=== PATIENT | male | born 1965 | race Caucasian/White ===

== ENCOUNTER 2017-01-03 23:30 | Emergency (ER) | payer SELFPAY ==
[~2017-01-03] VITALS: Ht 165.1 cm; Wt 80.0 kg
[~2017-01-03 23:30] MED LIST: ASPI81TA82 PO; LISI-515 PO; LISI30TA44 PO; NEXI20CA PO; ZYRT10TA12 PO
[2017-01-03 23:33] VITALS: BP 168/98; PULSE 67; RESP 16; TEMP 98; O2SAT 98
[2017-01-04] MEDS ORDERED: ASPI81CH37 CHEW (00:15)
--- NOTE | 2017-01-04 03:58 | RADRPT ---
EXAM DATE/TIME: 01/04/2017 03:48 This report includes an Addendum and supersedes previous reports for this exam. [facility] COMPARISON: CHEST SINGLE AP, August 17, 2016, 7:25. INDICATIONS : Patient had chest pain this evening and felt he had an elevated blood pressure. MEDICAL HISTORY : Hypertension. SURGICAL HISTORY : None. ENCOUNTER: Initial ACUITY: 1 day PAIN SCORE: 0/10 LOCATION: Bilateral chest FINDINGS: A single view of the chest demonstrates the lungs to be symmetrically aerated without evidence of mas s, infiltrate or effusion. The cardiomediastinal contours are unremarkable. Osseous structures are intact. CONCLUSION: 1. Endotracheal tube and nasogastric tube are in place. Kush Moya MD on January 04, 2017 at 3:56 Board Certified Radiologist. This report was verified electronically. ADDENDUM: I reviewed this examination and there is no endotracheal tube or nasogastric tube present. Nabor Yun MD on January 04, 2017 at 10:46 Board Certified Radiologist. This report was verified electronically.
[2017-01-04 04:05] LABS: AUTOMATED NEUTROPHIL # 4.1 TH/MM3 (1.8-7.7); BASOPHIL # 0.2 TH/MM3 (0-0.2); BASOPHIL % 2.4 % (0.0-2.0); EOSINOPHIL # 0.3 TH/MM3 (0-0.4); EOSINOPHIL % 3.7 % (0.0-4.0); HEMATOCRIT 43.4 % (39.0-51.0); HEMO FLAGS DIFF FINAL; LYMPH % 32.9 % (9.0-44.0); LYMPHOCYTE # 2.6 TH/MM3 (1.0-4.8); MEAN CELL VOLUME 90.6 FL (80.0-100.0); MEAN CORPUSCULAR HEMOGLOBIN 31.1 PG (27.0-34.0); MEAN CORPUSCULAR HGB CONC 34.4 % (32.0-36.0); MONO % 7.6 % (0.0-8.0); NEUT % 53.4 % (16.0-70.0); PLATELET COUNT 258 TH/MM3 (150-450); RED BLOOD COUNT 4.79 MIL/MM3 (4.50-5.90); RED CELL DISTRIBUTION WIDTH 13.4 % (11.6-17.2); WHITE BLOOD COUNT 7.8 TH/MM3 (4.0-11.0)
[2017-01-04 04:34] LABS: ANION GAP 6 MEQ/L (5-15); BICARBONATE 28.6 MEQ/L (21.0-32.0); BLOOD UREA NITROGEN 24 MG/DL (7-18); CHLORIDE 105 MEQ/L (98-107); GLOMERULAR FILTRATION RATE 61 ML/MIN (>89); POTASSIUM 4.3 MEQ/L (3.5-5.1); SODIUM (NA) 140 MEQ/L (136-145)
[2017-01-04 04:38] LABS: CREATINE KINASE 187 U/L (39-308)
[2017-01-04 04:51] LABS: CKMB 1.9 NG/ML (0.5-3.6)
[2017-01-04] MEDS ORDERED: LISI10TA3 PO (10:21)
--- NOTE | 2017-01-04 11:02 | PD ---
HPI Chief Complaint: Chest Pain Time Seen by Provider: 10:24 Travel History International Travel<30 days: No Contact w/Intl Traveler<30days: No Traveled to known affect area: No History of Present Illness HPI This is a 51-year-old male who presents to the emergency department having an onset of sternal chest pain that started at 10:30 last night, intermittent, sharp, stabbing, with no associated shortness of breath, diaphoresis or nausea. He's had chest pain like this in the past. 3 months ago he says he was evaluated and had normal stress test in his pain was attributed to indigestion. He says yesterday he was moving boxes and lifting things and his whole chest feels sore. His children were concerned about him and they brought him into the emergency department. He does have a history of hypertension. [facility] Past Medical History Diminished Hearing: No GERD: Yes Hypertension: Yes Tetanus Vaccination: Never Vaccinated Influenza Vaccination: No Past Surgical History Abdominal Surgery: Yes (hernia ) Social History Alcohol Use: No Tobacco Use: No Substance Use: No Allergies-Medications (Allergen,Severity, Reaction): Coded Allergies: No Known Allergies (Unverified , 01/04/17) Reported Meds & Prescriptions Reported Meds & Active Scripts Active Lisinopril 20 Mg Tab 20 Mg PO DAILY Reported Lisinopril 10 Mg Tab 10 Mg PO DAILY Aspirin Low Dose (Aspirin) 81 Mg Chew 81 Mg CHEW DAILY Review of Systems Except as stated in HPI: all other systems reviewed are Neg Physical Exam Narrative GENERAL:Well appearing, no acute distress SKIN: Warm and dry. HEAD: Atraumatic. Normocephalic. EYES: Pupils equal and round. No injection or drainage. ENT: Moist mucous membranes NECK: Trachea midline. CARDIOVASCULAR: Regular rate and rhythm. No murmur appreciated. RESPIRATORY: Clear to auscultation. Breath sounds equal bilaterally. GASTROINTESTINAL: Abdomen soft, non-tender, nondistended. MUSCULOSKELETAL: No obvious deformities. NEUROLOGICAL: Awake and alert. No obvious cranial nerve deficits. Moving all extremities. PSYCHIATRIC: Appropriate mood and affect; insight and judgment normal. Data Data Last Documented VS Vital Signs Date Time Temp Pulse Resp B/P Pulse Ox O2 Delivery O2 Flow Rate FiO2 01/04/17 00:17 16 Room Air 01/03/17 23:33 98.0 67 168/98 98 Orders Electrocardiogram (01/04/17 ) Complete Blood Count With Diff (01/04/17 03:33) Basic Metabolic Panel (Bmp) (01/04/17 03:33) Ckmb (Isoenzyme) Profile (01/04/17 03:33) Troponin I (01/04/17 03:33) Chest, Single Ap (01/04/17 03:33) CKMB (01/04/17 03:52) CKMB% (01/04/17 03:52) Troponin I (01/04/17 10:33) Labs Laboratory Tests Test 01/04/17 01/04/17 03:52 11:02 White Blood Count 7.8 TH/MM3 Red Blood Count 4.79 MIL/MM3 Hemoglobin 14.9 GM/DL Hematocrit 43.4 % Mean Corpuscular Volume 90.6 FL Mean Corpuscular Hemoglobin 31.1 PG Mean Corpuscular Hemoglobin 34.4 % Concent Red Cell Distribution Width 13.4 % Platelet Count 258 TH/MM3 Mean Platelet Volume 7.6 FL Neutrophils (%) (Auto) 53.4 % Lymphocytes (%) (Auto) 32.9 % Monocytes (%) (Auto) 7.6 % Eosinophils (%) (Auto) 3.7 % Basophils (%) (Auto) 2.4 % Neutrophils # (Auto) 4.1 TH/MM3 Lymphocytes # (Auto) 2.6 TH/MM3 Monocytes # (Auto) 0.6 TH/MM3 Eosinophils # (Auto) 0.3 TH/MM3 Basophils # (Auto) 0.2 TH/MM3 CBC Comment DIFF FINAL Differential Comment Sodium Level 140 MEQ/L Potassium Level 4.3 MEQ/L Chloride Level 105 MEQ/L Carbon Dioxide Level 28.6 MEQ/L Anion Gap 6 MEQ/L Blood Urea Nitrogen 24 MG/DL Creatinine 1.25 MG/DL Estimat Glomerular Filtration 61 ML/MIN Rate Random Glucose 98 MG/DL Calcium Level 8.5 MG/DL Total Creatine Kinase 187 U/L Creatine Kinase MB 1.9 NG/ML Troponin I LESS THAN 0.02 LESS THAN 0.02 NG/ML NG/ML MDM Medical Decision Making Medical Screen Exam Complete: Yes Emergency Medical Condition: Yes Interpretation(s) Afebrile, no tachycardia, hypertension EKG: Normal sinus rhythm with no ST changes Differential Diagnosis Acute coronary syndrome, GERD, gastritis, costochondritis Narrative Course This is a 51-year-old male who presents to the emergency department with atypical chest pain. He was placed on a monitor and an IV was established. EKG was nonischemic. Initial troponin is normal. Chest x-rays reassuring. Patient had a normal exercise stress test in September 2016. I suspect the patient has costochondritis in the setting of lifting heavy boxes yesterday and that the etiology of his pain. A repeat troponin will be obtained this morning and if normal the patient can be discharged home. The patient says he feels like his blood pressure is been higher ever since he went down on his lisinopril. I agreed to write him for 20 mg of lisinopril and have him follow- up with his primary care physician. Diagnosis Primary Impression: Chest pain Qualified Code: R07.9 - Chest pain, unspecified type Patient Instructions: General Instructions Additional Instructions: If you develop severe chest pain, shortness of breath, sweating, lightheadedness , dizziness or difficulty breathing return to the emergency department immediately. Followup with your primary care physician in 2-3 days if your symptoms are not resolved. Med/Other Pt SpecificInfo: Prescription(s) given Scripts Lisinopril 20 Mg Tab20 Mg PO DAILY #30 TAB Ref 0 Prov:Clara Johnson MD 01/04/17 Disposition: 01 DISCHARGE HOME Condition: Stable Clara Johnson MD Jan 04, 2017 11:01
[2017-01-04] MEDS ORDERED: LISI-515 PO (11:04)
--- NOTE | 2017-01-04 22:52 | EKG ---
Date Performed: 01/04/2017 Time Performed: 00:25:31 PTAGE: 51 years EKG: Sinus rhythm NORMAL ECG PREVIOUS TRACING : 08/17/2016 10.33 DOCTOR: Haider Correa Interpretating Date/Time 01/04/2017 22:51:33
== END 2017-01-04 12:00 | disposition home or self-care (01) ==
LOC: NEPE 23:30
DX: R07.9 Chest pain, unspecified (principal); I10 Essential (primary) hypertension; K21.9 Gastro-esophageal reflux disease without esophagitis
CPT/HCPCS: 71010; 80048; 82550; 82552; 84484; 85025; 93005

== ENCOUNTER 2017-02-23 18:10 | Emergency (ER) | payer SELFPAY ==
[~2017-02-23] VITALS: Ht 170.2 cm; Wt 80.0 kg
[~2017-02-23 18:10] MED LIST changes: +ASPI81CH37 CHEW; -ASPI81TA82 PO; +LISI10TA3 PO; -LISI30TA44 PO; -NEXI20CA PO; -ZYRT10TA12 PO
[2017-02-23 18:12] VITALS: BP 159/100; PULSE 97; RESP 16; TEMP 97.8; O2SAT 97
[2017-02-23] MEDS ORDERED: SODIUM CHLOR 0.9% 1000 ML INJ 1,000 ML IV ONE (18:48)
[2017-02-23 18:50] VITALS: PULSE 84; O2SAT 97
--- NOTE | 2017-02-23 18:52 | PD ---
HPI Chief Complaint: Headache Time Seen by Provider: 18:49 Travel History International Travel<30 days: No Contact w/Intl Traveler<30days: No Traveled to known affect area: No History of Present Illness HPI 51-year-old male presents to the emergency department for evaluation of hypertension and headache. He states his headache has been ongoing this morning. He states that on the top of his head and currently rates 8/10. He does report a history of migraines and states this is not the most severe headache of his life. He states he took Goody powder 2 with no relief. When asked why he came to the emergency department, he states because his daughter and sister became worried because he also had associated blurry vision which is new for him. He states the blurry vision has resolved at this time. The patient denies any history of this with his headaches though. The patient does report a history of chronic back pain, migraine headaches, hypertension, reflux , restless leg syndrome. He is currently on lisinopril, Nexium, aspirin. He reports 2 hernia surgeries in the past, but no other surgeries. No alcohol, tobacco, drug use. He denies any weakness or syncope. No fevers. He is not currently have a primary care physician, but states he gets the [facility] clinic. [facility] Past Medical History Diminished Hearing: No GERD: Yes Hypertension: Yes Past Surgical History Abdominal Surgery: Yes (hernia ) Social History Alcohol Use: No Tobacco Use: No Substance Use: No Allergies-Medications (Allergen,Severity, Reaction): Coded Allergies: No Known Allergies (Unverified , 02/23/17) Reported Meds & Prescriptions Reported Meds & Active Scripts Active Lisinopril 20 Mg Tab 20 Mg PO DAILY Reported [unknown] Aspirin Low Dose (Aspirin) 81 Mg Chew 81 Mg CHEW DAILY Review of Systems Except as stated in HPI: all other systems reviewed are Neg Physical Exam Narrative GENERAL: Well-nourished, well-developed male patient, ambulatory. Afebrile. SKIN: Focused skin assessment warm/dry. HEAD: Normocephalic. Atraumatic. EYES: No scleral icterus. No injection or drainage. PERRLA. EOM intact. NECK: Supple, trachea midline. No JVD or lymphadenopathy. CARDIOVASCULAR: Regular rate and rhythm without murmurs, gallops, or rubs. RESPIRATORY: Breath sounds equal bilaterally. No accessory muscle use. Lungs sounds are clear to auscultation. GASTROINTESTINAL: Abdomen soft, non-tender, nondistended. MUSCULOSKELETAL: No cyanosis, or edema. Bilateral upper and lower extremity strength 5/5. All extremities are neurovascularly intact. BACK: Nontender without obvious deformity. No CVA tenderness. NEUROLOGICAL: Awake and alert. Cranial nerves II through XII intact. Motor and sensory grossly within normal limits. Five out of 5 muscle strength in all muscle groups. Normal speech. Finger to nose is normal bilaterally. Heel-to- emmanuel is normal bilaterally. Data Data Last Documented VS Vital Signs Date Time Temp Pulse Resp B/P Pulse Ox O2 Delivery O2 Flow Rate FiO2 02/23/17 18:50 84 97 Room Air 02/23/17 18:12 97.8 16 159/[address] Brain W/O Iv Contrast(Rout) (02/23/17 18:48) Ecg Monitoring (02/23/17 18:48) Iv Access Insert/Monitor (02/23/17 18:48) Oximetry (02/23/17 18:48) Sodium Chloride 0.9% Flush (Ns Flush) (02/23/17 19:00) Prochlorperazine Inj (Compazine Inj) (02/23/17 19:00) Diphenhydramine Inj (Benadryl Inj) (02/23/17 19:00) Sodium Chlor 0.9% 1000 Ml Inj (Ns 1000 M (02/23/17 18:48) MDM Medical Decision Making Medical Screen Exam Complete: Yes Emergency Medical Condition: Yes Medical Record Reviewed: Yes Interpretation(s) Last Impressions Head CT 02/23/17 [id number] Signed Impressions: Service Date/Time: February 19:09 - CONCLUSION: Unremarkable study. Murphy Gonzalez MD Differential Diagnosis Migraine headache versus tension type headache versus intracranial abnormality Narrative Course 51-year-old male presents to the emergency department for evaluation of hypertension and headache. He states this is typical headache other than the fact that he had blurry vision earlier. He does state this has resolved. IV access was obtained. Patient is given Compazine 10 mg IV, Benadryl 25 mg IV, normal saline [address] of the brain is ordered and pending. CT of the brain is unremarkable. Upon reexamination, patient states his headache is almost gone. He'll also be given Toradol 30 mg IV. He is stable for discharge. He is to follow up with primary care physician. He is instructed to return for any acute worsening of symptoms. Patient verbalizes agreement and understanding. The patient was discharged in stable condition with instructions, including return instructions and follow up instructions. Diagnosis Primary Impression: Migraine headache Qualified Code: G43.009 - Migraine without aura and without status migrainosus , not intractable Referrals: Primary Care Physician call for appointment Patient Instructions: General Instructions, Migraine Headache (ED) Additional Instructions: Follow-up with your primary care physician. Return to the emergency department for any acute worsening of symptoms. Med/Other Pt SpecificInfo: No Change to Meds Disposition: 01 DISCHARGE HOME Condition: Stable Farida Godinez Feb 23, 2017 18:52
[2017-02-23] MEDS ORDERED: SODIUM CHLORIDE 0.9% FLUSH 10 ML FLUSH IVF PRN (19:00)
[2017-02-23] MEDS ORDERED: PROCHLORPERAZINE INJ 10 MG/2 ML VIAL IVP ONE (19:00)
[2017-02-23] MEDS ORDERED: diphenhydrAMINE HCL 50 MG/ML VIAL IVP ONE (19:00)
--- NOTE | 2017-02-23 19:49 | RADRPT ---
EXAM DATE/TIME: 02/23/2017 19:09 [facility] COMPARISON: CT BRAIN W/O CONTRAST, June 11, 2016, 18:28. INDICATIONS : Cephalgia and blurred vision. RADIATION DOSE: 41.78 CTDIvol (mGy) MEDICAL HISTORY : Hypertension. SURGICAL HISTORY : None. ENCOUNTER: Initial ACUITY: 1 day PAIN SCALE: 5/10 LOCATION: cranial TECHNIQUE: Multiple contiguous axial images were obtained of the head. Using automated exposure control and adjustment of the mA and/or kV according to patient size, radiation dose was kept as low as reasonably achievable to obtain optimal diagnostic quality images. FINDINGS: There is no evidence for intracranial hemorrhage, mass effect, mass lesions, edema, or extra-axial fl uid collections. The visualized bony structures appear intact. The ventricles are normal size for t he patient's age. There are no signs of acute infarction for technique. CONCLUSION: Unremarkable study. Murphy Gonzalez MD on February 23, 2017 at 19:46 Board Certified Radiologist. This report was verified electronically.
[2017-02-23] MEDS ORDERED: KETOROLAC TROMETHAMINE 30 MG/ML (IVP) VIAL IV PUSH ONE (20:30)
== END 2017-02-23 20:41 | disposition home or self-care (01) ==
LOC: NEPD 18:10
DX: G43.009 Migraine without aura, not intractable, without status migrainosus (principal)
CPT/HCPCS: 70450; 96374; 96375; 99284; J0780; J1200; J1885; J7030

== ENCOUNTER 2017-03-20 19:17 | Emergency (ER) | payer SELFPAY ==
[~2017-03-20] VITALS: Ht 172.7 cm; Wt 80.0 kg
[~2017-03-20 19:17] MED LIST changes: -LISI10TA3 PO
[2017-03-20 19:18] VITALS: BP 157/100; PULSE 78; RESP 16; TEMP 98.9; O2SAT 97
--- NOTE | 2017-03-20 20:10 | PD ---
Physical Exam Time Seen by Provider: 10:08 Narrative 51 y/o male presents for evaluation of headache, htn. Hx of migraines, this feels similar. Htn is chronic, frequent migraines, this one started 2-3 days ago. vss Seen at triage desk. Awaiting bed placement. Data Data Last Documented VS Vital Signs Date Time Temp Pulse Resp B/P Pulse Ox O2 Delivery O2 Flow Rate FiO2 03/20/17 19:18 98.9 78 16 157/100 97 Room Air [facility] Medical Record Reviewed: Yes Supervised Visit with KWAME: Tomy Moise March 20, 2017 20:10
== END 2017-03-20 22:51 | disposition left against medical advice (07) ==
LOC: NED 19:17
DX: R51 Headache (principal); Z53.21 Procedure and treatment not carried out due to patient leaving prior to being seen by health care provider; I10 Essential (primary) hypertension
CPT/HCPCS: 99281

== ENCOUNTER 2017-06-29 00:34 | Emergency (ER) | payer SELFPAY ==
[~2017-06-29] VITALS: Ht 170.2 cm; Wt 79.5 kg
[2017-06-29 00:35] VITALS: BP 141/98; PULSE 73; RESP 16; TEMP 98.9; O2SAT 97
[2017-06-29] MEDS ORDERED: BENZ100 PO (01:12)
[2017-06-29] MEDS ORDERED: DOXY100C PO (01:12)
[2017-06-29] MEDS ORDERED: BENZONATATE 100 MG CAP PO ONE (01:15)
[2017-06-29] MEDS ORDERED: DOXYCYCLINE HYCLATE 100 MG CAP PO ONE (01:15)
--- NOTE | 2017-06-29 01:16 | PD ---
HPI Chief Complaint: Cold / Flu Symptoms Time Seen by Provider: 01:12 Travel History International Travel<30 days: No Contact w/Intl Traveler<30days: No Traveled to known affect area: No History of Present Illness HPI 52-year-old white male presents to emergency department with complains of cough and congestion this week. He states that he's had some slight congestion, cough with white sputum. He states that he coughs so hard sometimes it causes him to vomit. He denies any fever or chills. No ear pain or sore throat. No shortness of breath or wheezing. No abdominal pain or diarrhea. No dysuria or frequency. Symptoms are moderate. No exacerbating activity. No palliative activity. PFSH Past Medical History Narrative Medical Migraines, left shoulder bursitis, Hypertension. Denies asthma or COPD Diminished Hearing: No GERD: Yes Hypertension: Yes Medical other: Yes (BURSITIS IN LEFT SHOULDER) Migraines: Yes Tetanus Vaccination: < 5 Years Past Surgical History Narrative Surgical Herniorrhaphy Abdominal Surgery: Yes (hernia ) Social History Alcohol Use: No Tobacco Use: No Substance Use: No Allergies-Medications (Allergen,Severity, Reaction): Coded Allergies: No Known Allergies (Unverified , 06/29/17) Reported Meds & Prescriptions Reported Meds & Active Scripts Active Lisinopril 20 Mg Tab 20 Mg PO DAILY Reported Aspirin Low Dose (Aspirin) 81 Mg Chew 81 Mg CHEW DAILY Review of Systems Except as stated in HPI: all other systems reviewed are Neg Physical Exam Narrative GENERAL: Well-developed, well-nourished in no acute distress. Nontoxic appearing. HEAD: Normocephalic, atraumatic. EYES: Pupils equal round and reactive. Extraocular motions intact. No scleral icterus. No injection or drainage. ENT: TMs clear without erythema. The external auditory canals clear. Nose: clear . Posterior pharynx is pink and moist. No tonsillar edema or exudate. Uvula midline. Airway patent. NECK: Trachea midline.Supple, nontender, moves head freely. No central bony tenderness or spasm. CARDIOVASCULAR: Regular rate and rhythm without murmurs, gallops, or rubs. RESPIRATORY: Clear to auscultation. Breath sounds equal bilaterally. No wheezes , rales, or rhonchi. GASTROINTESTINAL: Abdomen soft, non-tender, nondistended. No hepato-splenomegaly , or palpable masses. No guarding. EXTREMITIES: No clubbing, cyanosis, or edema. No joint tenderness, effusion, or edema noted. BACK: Nontender without deformity or crepitance. No flank tenderness. Data Data Last Documented VS Vital Signs Date Time Temp Pulse Resp B/P Pulse Ox O2 Delivery O2 Flow Rate FiO2 06/29/17 00:35 98.9 73 16 141/98 97 Room Air Orders Doxycycline (Vibramycin) (06/29/17 01:15) Benzonatate (Tessalon) (06/29/17 01:15) [facility] Medical Decision Making Medical Screen Exam Complete: Yes Emergency Medical Condition: Yes Medical Record Reviewed: Yes Differential Diagnosis Differential diagnoses: Pneumonia, bronchitis, COPD, cough associated with YOAV inhibitor Narrative Course The patient's exam is unremarkable. He'll be treated for possible bronchitis. I do not believe that this is related to his YOAV inhibitor. Patient is given doxycycline 100 mg and Tessalon Perles 200 mg by mouth Diagnosis Primary Impression: Bronchitis Patient Instructions: General Instructions Departure Forms: Tests/Procedures, Work Release Special Instructions: No work 1-2 days. Additional Instructions: Rest. Increase fluids. Tylenol and Advil. Robitussin-DM. Doxycycline and Tessalon Perles. Followup with your Dr. in one week. Return to the ER for any problems. Med/Other Pt SpecificInfo: Prescription(s) given Scripts Benzonatate (Tessalon Perles)100 Mg [id number] Mg PO TID PRN (COUGH) #30 CAP Prov:Roxy Kline MD 06/29/17 Doxycycline Hyclate 100 Mg [id number] Mg PO BID #14 CAP Prov:Roxy Kline MD 06/29/17 Disposition: 01 DISCHARGE HOME Condition: Stable Reid Uriostegui Jun 29, 2017 01:15
== END 2017-06-29 02:19 | disposition home or self-care (01) ==
LOC: NEPK 00:34
DX: J40 Bronchitis, not specified as acute or chronic (principal)
CPT/HCPCS: 99284

== ENCOUNTER 2017-07-07 09:59 | Emergency (ER) | payer SELFPAY ==
[~2017-07-07] VITALS: Ht 171.4 cm; Wt 79.5 kg
[~2017-07-07 09:59] MED LIST changes: +BENZ100 PO; +DOXY100C PO
[2017-07-07 10:00] VITALS: BP 141/95; PULSE 108; RESP 17; TEMP 98.1; O2SAT 97
[2017-07-07] MEDS ORDERED: RESP: ALBUTEROL 2.5 MG/3 ML NEB (SCH) NEB ONE (10:30)
--- NOTE | 2017-07-07 10:45 | RADRPT ---
EXAM DATE/TIME: 07/07/2017 10:38 [facility] COMPARISON: No previous studies available for comparison. INDICATIONS : Shortness of breath and chest pain. MEDICAL HISTORY : None. SURGICAL HISTORY : None. ENCOUNTER: Initial ACUITY: 4 - 6 days PAIN SCORE: 6/10 LOCATION: Left upper chest FINDINGS: PA and lateral views of the chest demonstrate the lungs to be symmetrically aerated without evidence of mass, infiltrate or effusion. The cardiomediastinal contours are unremarkable. Osseous structure s are intact. CONCLUSION: No acute disease. Nabor Yun MD on July 07, 2017 at 10:42 Board Certified Radiologist. This report was verified electronically.
[2017-07-07] MEDS ORDERED: cefTRIAXone INJ 1,000 MG in SODIUM CHLORIDE 0.9% INJ 100 ML IV STA (10:54)
[2017-07-07] MEDS ORDERED: AZITHROMYCIN INJ 500 MG in SODIUM CHLOR 0.9% 250 ML INJ 250 ML IV STA (10:54)
[2017-07-07 11:08] LABS: AUTOMATED NEUTROPHIL # 8.5 TH/MM3 (1.8-7.7); BASOPHIL # 0.1 TH/MM3 (0-0.2); BASOPHIL % 0.9 % (0.0-2.0); EOSINOPHIL # 0.3 TH/MM3 (0-0.4); EOSINOPHIL % 2.3 % (0.0-4.0); HEMATOCRIT 43.3 % (39.0-51.0); HEMO FLAGS DIFF FINAL; LYMPH % 15.2 % (9.0-44.0); LYMPHOCYTE # 1.8 TH/MM3 (1.0-4.8); MEAN CELL VOLUME 92.4 FL (80.0-100.0); MEAN CORPUSCULAR HEMOGLOBIN 31.6 PG (27.0-34.0); MEAN CORPUSCULAR HGB CONC 34.2 % (32.0-36.0); MONO % 7.4 % (0.0-8.0); NEUT % 74.2 % (16.0-70.0); PLATELET COUNT 252 TH/MM3 (150-450); RED BLOOD COUNT 4.69 MIL/MM3 (4.50-5.90); RED CELL DISTRIBUTION WIDTH 13.8 % (11.6-17.2); WHITE BLOOD COUNT 11.5 TH/MM3 (4.0-11.0)
[2017-07-07 11:24] LABS: ANION GAP 7 MEQ/L (5-15); AST (GOT) 22 U/L (15-37); BICARBONATE 26.6 MEQ/L (21.0-32.0); BLOOD UREA NITROGEN 18 MG/DL (7-18); CHLORIDE 104 MEQ/L (98-107); GLOMERULAR FILTRATION RATE 65 ML/MIN (>89); POTASSIUM 4.3 MEQ/L (3.5-5.1); SODIUM (NA) 138 MEQ/L (136-145)
[2017-07-07 11:30] LABS: ALKALINE PHOSPHATASE 94 U/L (45-117); ALT (GPT) 28 U/L (12-78); TOTAL BILIRUBIN ADULT 0.4 MG/DL (0.2-1.0)
[2017-07-07] MEDS ORDERED: ZITHTAB PO (11:39)
[2017-07-07] MEDS ORDERED: ALBU0.08 NEB (11:39)
--- NOTE | 2017-07-07 11:39 | PD ---
HPI Chief Complaint: Respiratory Symptoms Time Seen by Provider: 10:13 Travel History International Travel<30 days: No Contact w/Intl Traveler<30days: No Traveled to known affect area: No History of Present Illness HPI Patient is a 52 year old male who comes in complaining of cough and SOB. He was here about 1 week ago and was given prescriptions for Doxycycline and Tessalon Perles. He was unable to fill these prescriptions due to financial reasons. He has been taking over the counter medications without relief of his symptoms. He denies fever or chills. He has not had any chest pain. He denies smoking. PFSH Past Medical History Cardiovascular Problems: Yes Diminished Hearing: No GERD: Yes Hypertension: Yes Migraines: Yes Tetanus Vaccination: Unknown Influenza Vaccination: No ?: Not Past Surgical History Abdominal Surgery: Yes (hernia ) Social History Alcohol Use: No (QUIT 30 YEARS AGO) Tobacco Use: No Substance Use: No Allergies-Medications (Allergen,Severity, Reaction): Coded Allergies: No Known Allergies (Unverified , 07/07/17) Reported Meds & Prescriptions Reported Meds & Active Scripts Active Albuterol Neb (Albuterol Sulfate) 2.5 Mg/3 Ml Neb 2.5 Mg NEB Q4HR NEB PRN Zithromax Z-Delta (Azithromycin) 250 Mg Dspk 250 Mg PO DIRECTED 500 MG (2 tabs) day 1, then 1 tab days 2-5. Tessalon Perles (Benzonatate) 100 Mg Cap 200 Mg PO TID PRN Doxycycline Hyclate 100 Mg Cap 100 Mg PO BID Lisinopril 20 Mg Tab 20 Mg PO DAILY Reported Aspirin Low Dose (Aspirin) 81 Mg Chew 81 Mg CHEW DAILY Review of Systems Except as stated in HPI: all other systems reviewed are Neg General / Constitutional: No: Fever, Chills HENT: No: Headaches, Lightheadedness Cardiovascular: No: Chest Pain or Discomfort Respiratory: Positive: Cough, Shortness of Breath Gastrointestinal: No: Nausea, Vomiting Musculoskeletal: No: Myalgias, Edema, Pain Skin: No Rash, No Change in Pigmentation Neurologic: No: Weakness, Dizziness Physical Exam Narrative GENERAL: Awake and alert, in no acute distress. SKIN: Focused skin assessment warm/dry. HEAD: Atraumatic. Normocephalic. EYES: Pupils equal and round. No scleral icterus. ENT: Mucous membranes pink and moist. NECK: Trachea midline. No JVD. CARDIOVASCULAR: Regular rate and rhythm. No murmur appreciated. RESPIRATORY: No accessory muscle use. Coarse breath sounds on the right. Breath sounds equal bilaterally. MUSCULOSKELETAL: No obvious deformities. No clubbing. No cyanosis. No edema. NEUROLOGICAL: Awake and alert. No obvious cranial nerve deficits. Motor grossly within normal limits. Normal speech. PSYCHIATRIC: Appropriate mood and affect; insight and judgment normal. Data Data Last Documented VS Vital Signs Date Time Temp Pulse Resp B/P Pulse Ox O2 Delivery O2 Flow Rate FiO2 07/07/17 10:36 20 97 Room Air 07/07/17 10:00 98.1 108 141/95 Orders Iv Access Insert/Monitor (07/07/17 10:19) Complete Blood Count With Diff (07/07/17 10:19) Comprehensive Metabolic Panel (07/07/17 10:19) Chest, Pa & Lat (07/07/17 ) Albuterol Neb (Albuterol Neb) (07/07/17 10:30) Ceftriaxone Inj (Rocephin Inj) (07/07/17 10:54) Azithromycin Inj (Zithromax Inj) (07/07/17 10:54) Labs Laboratory Tests Test 07/07/17 10:30 White Blood Count 11.5 TH/MM3 Red Blood Count 4.69 MIL/MM3 Hemoglobin 14.8 GM/DL Hematocrit 43.3 % Mean Corpuscular Volume 92.4 FL Mean Corpuscular Hemoglobin 31.6 PG Mean Corpuscular Hemoglobin 34.2 % Concent Red Cell Distribution Width 13.8 % Platelet Count 252 TH/MM3 Mean Platelet Volume 7.6 FL Neutrophils (%) (Auto) 74.2 % Lymphocytes (%) (Auto) 15.2 % Monocytes (%) (Auto) 7.4 % Eosinophils (%) (Auto) 2.3 % Basophils (%) (Auto) 0.9 % Neutrophils # (Auto) 8.5 TH/MM3 Lymphocytes # (Auto) 1.8 TH/MM3 Monocytes # (Auto) 0.9 TH/MM3 Eosinophils # (Auto) 0.3 TH/MM3 Basophils # (Auto) 0.1 TH/MM3 CBC Comment DIFF FINAL Differential Comment Sodium Level 138 MEQ/L Potassium Level 4.3 MEQ/L Chloride Level 104 MEQ/L Carbon Dioxide Level 26.6 MEQ/L Anion Gap 7 MEQ/L Blood Urea Nitrogen 18 MG/DL Creatinine 1.18 MG/DL Estimat Glomerular Filtration 65 ML/MIN Rate Random Glucose 101 MG/DL Calcium Level 8.6 MG/DL Total Bilirubin 0.4 MG/DL Aspartate Amino Transf 22 U/L (AST/SGOT) Alanine Aminotransferase 28 U/L (ALT/SGPT) Alkaline Phosphatase 94 U/L Total Protein 6.9 GM/DL Albumin 3.7 GM/DL [facility] Medical Decision Making Medical Screen Exam Complete: Yes Emergency Medical Condition: Yes Medical Record Reviewed: Yes Differential Diagnosis Pneumonia vs bronchitis vs URI Narrative Course Patient is a 52 year old male who comes in complaining of cough and SOB. Exam shows coarse breath sounds on the right. IV established, labs sent. Labs show no acute abnormalities. CXR performed shows no acute abnormalities. Patient given an albuterol treatment with improvement of his symptoms. Given a dose of Azithromycin here in the ED. Discharged with prescriptions for Azithromycin (10 dollars at [facility]) and albuterol for the nebulizer he has at home. Advised to follow up in the [place] clinic and return to the ED as needed for any worsening symptoms. Diagnosis Primary Impression: Bronchitis Referrals: [facility] call for appointment Patient Instructions: Acute Bronchitis (ED), General Instructions Additional Instructions: Take all of your antibiotics. Use albuterol as needed for cough and SOB. Follow up in the [place] clinic. Return to the ED as needed for any worsening symptoms. Scripts Albuterol Neb 2.5 Mg/3 Ml Neb2.5 Mg NEB Q4HR NEB PRN (SHORTNESS OF BREATH) #60 NEBULE Ref 0 Prov:Roxy Kline MD 07/07/17 Azithromycin (Zithromax Z-Delta)250 Mg [id number] Mg PO DIRECTED #1 DSPK Ref 0 500 MG (2 tabs) day 1, then 1 tab days 2-5. Prov:Roxy Kline MD 07/07/17 Disposition: 01 DISCHARGE HOME Condition: Stable Roxy Kline MD Jul 07, 2017 11:39
== END 2017-07-07 13:07 | disposition home or self-care (01) ==
LOC: NEPD 09:59
DX: J20.9 Acute bronchitis, unspecified (principal); I10 Essential (primary) hypertension; K21.9 Gastro-esophageal reflux disease without esophagitis
CPT/HCPCS: 71020; 80053; 85025; 94664; 96365; 99284; J0456; J7050; J7613

== ENCOUNTER 2017-08-31 08:28 | Emergency (ER) | payer SELFPAY ==
[~2017-08-31] VITALS: Ht 170.2 cm; Wt 85.0 kg
[~2017-08-31 08:28] MED LIST changes: +ALBU0.08 NEB; +ZITHTAB PO
[2017-08-31 08:30] VITALS: BP 135/88; PULSE 118; RESP 19; TEMP 98.3; O2SAT 94
[2017-08-31] MEDS ORDERED: NEXI40CA PO (08:50)
[2017-08-31] MEDS ORDERED: VITA100021 SL (08:50)
[2017-08-31] MEDS ORDERED: SODIUM CHLOR 0.9% 1000 ML INJ 1,000 ML IV ONE ×2 (08:58→11:45)
[2017-08-31] MEDS ORDERED: SODIUM CHLORIDE 0.9% FLUSH 10 ML FLUSH IVF PRN (09:00)
[2017-08-31] MEDS ORDERED: ONDANSETRON HCL 4 MG/2 ML VIAL IV PUSH ONE (09:00)
[2017-08-31 09:10] VITALS: BP 116/71; PULSE 97; RESP 16; O2SAT 94
[2017-08-31 09:33] LABS: AUTOMATED NEUTROPHIL # 5.6 TH/MM3 (1.8-7.7); BASOPHIL % 0.5 % (0.0-2.0); EOSINOPHIL % 0.8 % (0.0-4.0); HEMATOCRIT 43.9 % (39.0-51.0); HEMO FLAGS DIFF FINAL; LYMPHOCYTE # 0.4 TH/MM3 (1.0-4.8); MEAN CELL VOLUME 92.9 FL (80.0-100.0); MEAN CORPUSCULAR HEMOGLOBIN 31.8 PG (27.0-34.0); MEAN CORPUSCULAR HGB CONC 34.2 % (32.0-36.0); MONO % 4.4 % (0.0-8.0); NEUT % 87.3 % (16.0-70.0); PLATELET COUNT 205 TH/MM3 (150-450); RED BLOOD COUNT 4.73 MIL/MM3 (4.50-5.90); RED CELL DISTRIBUTION WIDTH 13.4 % (11.6-17.2); WHITE BLOOD COUNT 6.4 TH/MM3 (4.0-11.0)
--- NOTE | 2017-08-31 09:34 | PD ---
HPI Chief Complaint: GI Complaint Time Seen by Provider: 08:58 Travel History International Travel<30 days: No Contact w/Intl Traveler<30days: No Traveled to known affect area: No History of Present Illness HPI This is a 52-year-old male with history of hypertension, presents today with complaints of 2 day history of nausea vomiting diarrhea. Patient states started yesterday with watery diarrhea. He reports 6 episodes of diarrhea. He also reports 5-6 episodes of nausea. He denies any blood in his vomit or stool. There are no ill contacts. Distal previous history of abdominal pain or abnormalities. He reports mild headache. He also reports no pain in his abdomen. He reports normal urine output. PFSH Past Medical History Cardiovascular Problems: Yes Diminished Hearing: No GERD: Yes Hypertension: Yes Migraines: Yes Tetanus Vaccination: > 5 Years Influenza Vaccination: No Past Surgical History Abdominal Surgery: Yes (hernia ) Social History Alcohol Use: No Tobacco Use: No Substance Use: No Allergies-Medications (Allergen,Severity, Reaction): Coded Allergies: No Known Allergies (Unverified , 08/31/17) Reported Meds & Prescriptions Reported Meds & Active Scripts Active Lisinopril 20 Mg Tab 20 Mg PO DAILY Reported Vitamin B-12 (Cyanocobalamin) 1,000 Mcg Subl 1,000 Mcg SL DAILY Nexium (Esomeprazole DR) 40 Mg Capdr 40 Mg PO DAILY Aspirin Low Dose (Aspirin) 81 Mg Chew 81 Mg CHEW DAILY Review of Systems Except as stated in HPI: all other systems reviewed are Neg General / Constitutional: No: Fever, Chills HENT: Positive: Headaches, No: Neck Stiffness, Neck Pain Cardiovascular: No: Chest Pain or Discomfort, Palpitations Gastrointestinal: Positive: Nausea, Vomiting, Diarrhea, Abdominal Pain Genitourinary: No: Dysuria, Decreased Urinary Output Musculoskeletal: No: Weakness, Pain Neurologic: Positive: Headache (mild), No: Weakness, Dizziness Physical Exam Narrative GENERAL: Well-nourished, well-developed patient, in no acute rest her distress. SKIN: Focused skin assessment warm/dry. HEAD: Normocephalic/atraumatic. EYES: No scleral icterus. No injection or drainage. NECK: Supple, trachea midline. No JVD or lymphadenopathy. CARDIOVASCULAR: Regular rate and rhythm without murmurs, gallops, or rubs. RESPIRATORY: Breath sounds equal bilaterally. No accessory muscle use. GASTROINTESTINAL: Abdomen soft, non-tender, nondistended. No rebound or guarding. MUSCULOSKELETAL: No cyanosis, or edema. NEUROLOGICAL: Awake and alert. Cranial nerves II through XII intact. Motor grossly within normal limits. Five out of 5 muscle strength in all muscle groups. Normal speech. Data Data Last Documented VS Vital Signs Date Time Temp Pulse Resp B/P (MAP) Pulse Ox O2 Delivery O2 Flow Rate FiO2 08/31/17 12:45 82 16 114/68 (83) 95 Room Air 08/31/17 08:30 98.3 Orders Orders Complete Blood Count With Diff (08/31/17 08:58) Comprehensive Metabolic Panel (08/31/17 08:58) Urinalysis - C+S If Indicated (08/31/17 08:58) Lipase (08/31/17 08:58) Iv Access Insert/Monitor (08/31/17 08:58) Ecg Monitoring (08/31/17 08:58) Oximetry (08/31/17 08:58) Ondansetron Inj (Zofran Inj) (08/31/17 09:00) Sodium Chlor 0.9% 1000 Ml Inj (Ns 1000 M (08/31/17 08:58) Sodium Chloride 0.9% Flush (Ns Flush) (08/31/17 09:00) Ibuprofen (Motrin) (08/31/17 11:45) Sodium Chlor 0.9% 1000 Ml Inj (Ns 1000 M (08/31/17 11:45) Labs Laboratory Tests Test 08/31/17 09:00 White Blood Count 6.4 TH/MM3 Red Blood Count 4.73 MIL/MM3 Hemoglobin 15.0 GM/DL Hematocrit 43.9 % Mean Corpuscular Volume 92.9 FL Mean Corpuscular Hemoglobin 31.8 PG Mean Corpuscular Hemoglobin Concent 34.2 % Red Cell Distribution Width 13.4 % Platelet Count 205 TH/MM3 Mean Platelet Volume 7.7 FL Neutrophils (%) (Auto) 87.3 % Lymphocytes (%) (Auto) 7.0 % Monocytes (%) (Auto) 4.4 % Eosinophils (%) (Auto) 0.8 % Basophils (%) (Auto) 0.5 % Neutrophils # (Auto) 5.6 TH/MM3 Lymphocytes # (Auto) 0.4 TH/MM3 Monocytes # (Auto) 0.3 TH/MM3 Eosinophils # (Auto) 0.0 TH/MM3 Basophils # (Auto) 0.0 TH/MM3 CBC Comment DIFF FINAL Differential Comment Urine Color YELLOW Urine Turbidity CLEAR Urine pH 6.0 Urine Specific [place] 1.025 Urine Protein TRACE mg/dL Urine Glucose (UA) NEG mg/dL Urine Ketones NEG mg/dL Urine Occult Blood NEG Urine Nitrite NEG Urine Bilirubin NEG Urine Urobilinogen LESS THAN 2.0 MG/DL Urine Leukocyte Esterase NEG Urine RBC 1 /hpf Urine WBC 1 /hpf Urine Squamous Epithelial Cells <1 /hpf Urine Mucus FEW /lpf Microscopic Urinalysis Comment CULT NOT INDICATED Blood Urea Nitrogen 16 MG/DL Creatinine 1.19 MG/DL Random Glucose 117 MG/DL Total Protein 7.0 GM/DL Albumin 3.9 GM/DL Calcium Level 8.7 MG/DL Alkaline Phosphatase 82 U/L Aspartate Amino Transf (AST/SGOT) 25 U/L Alanine Aminotransferase (ALT/SGPT) 36 U/L Total Bilirubin 0.4 MG/DL Sodium Level 135 MEQ/L Potassium Level 3.7 MEQ/L Chloride Level 103 MEQ/L Carbon Dioxide Level 24.3 MEQ/L Anion Gap 8 MEQ/L Estimat Glomerular Filtration Rate 64 ML/MIN Lipase 155 U/L [facility] Medical Decision Making Medical Screen Exam Complete: Yes Emergency Medical Condition: Yes Differential Diagnosis Gastroenteritis versus foodborne illness versus pancreatitis versus diverticulitis Narrative Course 52-year-old male presents with nausea vomiting diarrhea. The patient has no abdominal pain on my examination. The patient's labs are within normal limits. He's been given 2 L of IVD fluids and 600 mg of Motrin. He states this headache that she had earlier has completely resolved. He is wishing to be discharged. He's had no nausea vomiting or diarrhea since he is been here. I will give him a prescription for Zofran. He is instructed to increase his fluid intake. Diagnosis Primary Impression: Nausea vomiting and diarrhea Additional Instructions: Drink plenty of fluids. Return if feeling worse. Med/Other Pt SpecificInfo: Prescription(s) given Scripts Ondansetron (Zofran) 4 Mg Tab 4 MG PO Q8HR Y for NAUSEA OR VOMITING, #10 TAB 0 Refills Prov: Melvin Delgado MD 08/31/17 Disposition: 01 DISCHARGE HOME Condition: Stable Melvin Delgado MD Aug 31, 2017 09:34
[2017-08-31 09:46] LABS: BLOOD, URINE NEG (NEG); COMMENT (UR) CULT NOT INDICATED; CULTURE IF INDICATED CULT NOT INDICATED; GLUCOSE,URINE NEG (NEG); KETONE, URINE NEG (NEG); MUCUS URINE FEW /lpf (OCC); NITRITE,URINE NEG (NEG); SQUAMOUS EPITHELIAL CELL URINE <1 /hpf (0-5); URINE COLOR YELLOW (YELLW/STRAW)
[2017-08-31 09:49] LABS: ALT (GPT) 36 U/L (12-78); ANION GAP 8 MEQ/L (5-15); AST (GOT) 25 U/L (15-37); BICARBONATE 24.3 MEQ/L (21.0-32.0); BLOOD UREA NITROGEN 16 MG/DL (7-18); CHLORIDE 103 MEQ/L (98-107); GLOMERULAR FILTRATION RATE 64 ML/MIN (>89); POTASSIUM 3.7 MEQ/L (3.5-5.1); SODIUM (NA) 135 MEQ/L (136-145)
[2017-08-31 09:52] LABS: ALKALINE PHOSPHATASE 82 U/L (45-117); TOTAL BILIRUBIN ADULT 0.4 MG/DL (0.2-1.0)
[2017-08-31] MEDS ORDERED: IBUPROFEN 600 MG TAB PO ONE (11:45)
[2017-08-31 12:45] VITALS: BP 114/68; PULSE 82; RESP 16; O2SAT 95
[2017-08-31] MEDS ORDERED: ZOFR4TAB PO (12:52)
[2017-08-31 13:13] VITALS: RESP 16
== END 2017-08-31 13:23 | disposition home or self-care (01) ==
LOC: NEPE 08:28
DX: R11.2 Nausea with vomiting, unspecified (principal); R19.7 Diarrhea, unspecified; I10 Essential (primary) hypertension; K21.9 Gastro-esophageal reflux disease without esophagitis
CPT/HCPCS: 80053; 81001; 83690; 85025; 96361; 96374; 99284; J2405; J7030

== ENCOUNTER 2017-10-20 22:45 | Emergency (ER) | payer SELFPAY ==
[~2017-10-20] VITALS: Ht 170.2 cm; Wt 85.0 kg
[~2017-10-20 22:45] MED LIST changes: -ALBU0.08 NEB; -ASPI81CH37 CHEW; +ASPI81CH6 CHEW; -BENZ100 PO; -DOXY100C PO; +NEXI40CA PO; +VITA100021 SL; -ZITHTAB PO; +ZOFR4TAB PO
[2017-10-20 22:47] VITALS: BP 149/97; PULSE 66; RESP 16; TEMP 99; O2SAT 98
[2017-10-20 23:10] VITALS: BP 144/107; PULSE 77; RESP 18; O2SAT 96
[2017-10-20] MEDS ORDERED: LISINOPRIL 10 MG TAB PO ONE (23:45)
--- NOTE | 2017-10-21 | PD ---
HPI Chief Complaint: Dizziness Time Seen by Provider: 23:14 Travel History International Travel<30 days: No Contact w/Intl Traveler<30days: No Traveled to known affect area: No History of Present Illness HPI Patient is a 52-year-old male coming in having 2 days of dizziness he said it started yesterday at work when he was helping unload a truck however he says it was not exertional. He often gets this dizziness but it is not correlated with exertion. He comes into the ER tonight because she's having left shoulder pain as well which he thought could be related to his heart. He has no history of cardiac disease and recently had a stress test which she said was without findings. Family history of cardiac disease. Patient in the ER appears nondiaphoretic awake alert in no distress he reports the pain is localized to his left upper humerus area there is no radiation. The dizziness is not a vertiginous feeling it is a almost blurring of his vision and almost doubling of his vision he reports. He is not having the symptoms of the time that I examined him and been coming and going for 2 days in duration has not seen another doctor for this same complaint. He has no doctor at this time because his hours that he works does not qualify him for health insurance. PFSH Past Medical History Cardiovascular Problems: Yes Diminished Hearing: No GERD: Yes Hypertension: Yes Migraines: Yes Tetanus Vaccination: Unknown Influenza Vaccination: No Past Surgical History Abdominal Surgery: Yes (hernia ) Social History Alcohol Use: No Tobacco Use: No Substance Use: No Allergies-Medications (Allergen,Severity, Reaction): Coded Allergies: No Known Allergies (Unverified Adverse Reaction, Unknown, 10/20/17) Reported Meds & Prescriptions Reported Meds & Active Scripts Active Lisinopril 20 Mg Tab 20 Mg PO DAILY Lisinopril 10 Mg Tab 10 Mg PO DAILY Zofran (Ondansetron HCl) 4 Mg Tab 4 Mg PO Q8HR PRN Lisinopril 20 Mg Tab 20 Mg PO DAILY Reported Vitamin B-12 (Cyanocobalamin) 1,000 Mcg Subl 1,000 Mcg SL DAILY Nexium (Esomeprazole DR) 40 Mg Capdr 40 Mg PO DAILY Aspirin Low Dose (Aspirin) 81 Mg Chew 81 Mg CHEW DAILY Review of Systems Except as stated in HPI: all other systems reviewed are Neg Musculoskeletal: Positive: Myalgias (left humeral pain nonradiating) Neurologic: Positive: Dizziness Physical Exam Narrative GENERAL: Patient is awake alert no signs of ataxia and no signs of vertiginous SKIN: Warm and dry. HEAD: Atraumatic. Normocephalic. EYES: Pupils equal and round. No scleral icterus. No injection or drainage. No nystagmus ENT: No nasal bleeding or discharge. Mucous membranes pink and moist. NECK: Trachea midline. No JVD. CARDIOVASCULAR: Regular rate and rhythm. RESPIRATORY: No accessory muscle use. Clear to auscultation. Breath sounds equal bilaterally. GASTROINTESTINAL: Abdomen soft, non-tender, nondistended. Hepatic and splenic margins not palpable. MUSCULOSKELETAL: Extremities left arm reproducible humeral area shoulder pain without clubbing, cyanosis, or edema. No obvious deformities. NEUROLOGICAL: Awake and alert. No obvious cranial nerve deficits. Motor grossly within normal limits. Five out of 5 muscle strength in the arms and legs. Normal speech. PSYCHIATRIC: Appropriate mood and affect; insight and judgment normal. Data Data Last Documented VS Vital Signs Date Time Temp Pulse Resp B/P (MAP) Pulse Ox O2 Delivery O2 Flow Rate FiO2 10/21/17 01:27 10/21/17 01:20 57 18 60 18 58 18 10/21/17 00:55 97 Room Air 10/20/17 22:47 99.0 Orders Orders Troponin I (10/20/17 23:30) Complete Blood Count With Diff (10/20/17 23:30) Comprehensive Metabolic Panel (10/20/17 23:30) Lisinopril (Prinivil) (10/20/17 23:45) Orthostatic Vital Signs (10/21/17 00:58) Ed Discharge Order (10/21/17 01:19) Electrocardiogram (10/20/17 23:03) Labs Laboratory Tests Test 10/20/17 23:30 White Blood Count 7.7 TH/MM3 Red Blood Count 4.34 MIL/MM3 Hemoglobin 14.1 GM/DL Hematocrit 39.8 % Mean Corpuscular Volume 91.6 FL Mean Corpuscular Hemoglobin 32.4 PG Mean Corpuscular Hemoglobin Concent 35.4 % Red Cell Distribution Width 13.6 % Platelet Count 210 TH/MM3 Mean Platelet Volume 8.0 FL Neutrophils (%) (Auto) 57.4 % Lymphocytes (%) (Auto) 29.7 % Monocytes (%) (Auto) 7.8 % Eosinophils (%) (Auto) 3.9 % Basophils (%) (Auto) 1.2 % Neutrophils # (Auto) 4.4 TH/MM3 Lymphocytes # (Auto) 2.3 TH/MM3 Monocytes # (Auto) 0.6 TH/MM3 Eosinophils # (Auto) 0.3 TH/MM3 Basophils # (Auto) 0.1 TH/MM3 CBC Comment DIFF FINAL Differential Comment Blood Urea Nitrogen 15 MG/DL Creatinine 1.31 MG/DL Random Glucose 87 MG/DL Total Protein 6.7 GM/DL Albumin 4.0 GM/DL Calcium Level 8.6 MG/DL Alkaline Phosphatase 77 U/L Aspartate Amino Transf (AST/SGOT) 23 U/L Alanine Aminotransferase (ALT/SGPT) 23 U/L Total Bilirubin 0.3 MG/DL Sodium Level 137 MEQ/L Potassium Level 4.0 MEQ/L Chloride Level 102 MEQ/L Carbon Dioxide Level 32.3 MEQ/L Anion Gap 3 MEQ/L Estimat Glomerular Filtration Rate 57 ML/MIN Troponin I LESS THAN 0.02 NG/ML [facility] Medical Decision Making Medical Screen Exam Complete: Yes Emergency Medical Condition: Yes Interpretation(s) EKG is normal sinus rhythm at 60 bpm Differential Diagnosis Dizziness of dehydration versus vertigo of benign positional vertigo, Mnire's , anxiety left arm pain muscle spasm muscle strain versus referred pain of cardiac ischemia. Narrative Course EKG is normal sinus rhythm troponin is less than 0.02. Glucose is 87 patient lab pressure after 10 mg lisinopril which I added to his 20 mg of ER he took tonight brought his pressure to 129/70 he is pain-free he is ready for discharge I give him a prescription for lisinopril 20s to replace his exhausted prescription as well as added 10 mg pill to add on the days were his 20 does not control his blood pressure is to follow-up with outpatient clinic [facility] referral info given Diagnosis Primary Impression: Dizziness Additional Impression: Spasm of muscle Patient Instructions: Dizziness (ED), General Instructions, Hypertension (ED) Scripts Lisinopril (Lisinopril) 20 Mg Tab 20 MG PO DAILY, #30 TAB 0 Refills Prov: Shankar Sheffield MD 10/21/17 Lisinopril (Lisinopril) 10 Mg Tab 10 MG PO DAILY, #30 TAB 0 Refills Prov: Shankar Sheffield MD 10/21/17 Disposition: 01 DISCHARGE HOME Condition: Good Shankar Sheffield MD Oct 21, 2017 00:00
[2017-10-21 00:16] LABS: AUTOMATED NEUTROPHIL # 4.4 TH/MM3 (1.8-7.7); BASOPHIL # 0.1 TH/MM3 (0-0.2); BASOPHIL % 1.2 % (0.0-2.0); EOSINOPHIL # 0.3 TH/MM3 (0-0.4); EOSINOPHIL % 3.9 % (0.0-4.0); HEMATOCRIT 39.8 % (39.0-51.0); HEMO FLAGS DIFF FINAL; LYMPH % 29.7 % (9.0-44.0); LYMPHOCYTE # 2.3 TH/MM3 (1.0-4.8); MEAN CELL VOLUME 91.6 FL (80.0-100.0); MEAN CORPUSCULAR HEMOGLOBIN 32.4 PG (27.0-34.0); MEAN CORPUSCULAR HGB CONC 35.4 % (32.0-36.0); MONO % 7.8 % (0.0-8.0); NEUT % 57.4 % (16.0-70.0); PLATELET COUNT 210 TH/MM3 (150-450); RED BLOOD COUNT 4.34 MIL/MM3 (4.50-5.90); RED CELL DISTRIBUTION WIDTH 13.6 % (11.6-17.2); WHITE BLOOD COUNT 7.7 TH/MM3 (4.0-11.0)
[2017-10-21 00:49] LABS: ALT (GPT) 23 U/L (12-78); ANION GAP 3 MEQ/L (5-15); AST (GOT) 23 U/L (15-37); BICARBONATE 32.3 MEQ/L (21.0-32.0); BLOOD UREA NITROGEN 15 MG/DL (7-18); CHLORIDE 102 MEQ/L (98-107); GLOMERULAR FILTRATION RATE 57 ML/MIN (>89); SODIUM (NA) 137 MEQ/L (136-145)
[2017-10-21 00:52] LABS: ALKALINE PHOSPHATASE 77 U/L (45-117); TOTAL BILIRUBIN ADULT 0.3 MG/DL (0.2-1.0)
[2017-10-21 00:55] VITALS: BP 129/77; PULSE 77; RESP 18; O2SAT 97
[2017-10-21] MEDS ORDERED: LISI-515 PO (01:18)
[2017-10-21] MEDS ORDERED: LISI10TA3 PO (01:18)
[2017-10-21 01:20] VITALS: BP_SYST 119; BP_SYST 136; BP_DIAS 88; BP_DIAS 93; BP_DIAS 94; RESP 18
--- NOTE | 2017-10-22 23:11 | EKG ---
Date Performed: 10/20/2017 Time Performed: 23:03:14 PTAGE: 52 years EKG: Sinus rhythm NORMAL ECG NO PREVIOUS TRACING DOCTOR: Franki Olivier Interpretating Date/Time 10/22/2017 23:10:06
== END 2017-10-21 01:28 | disposition home or self-care (01) ==
LOC: NEPE 22:45
DX: R42 Dizziness and giddiness (principal); M62.838 Other muscle spasm; M25.512 Pain in left shoulder; K21.9 Gastro-esophageal reflux disease without esophagitis; I10 Essential (primary) hypertension; Z79.82 Long term (current) use of aspirin; Z79.899 Other long term (current) drug therapy
CPT/HCPCS: 80053; 84484; 85025; 93005; 99283

== ENCOUNTER 2017-11-20 06:23 | Emergency (ER) | payer SELFPAY ==
[~2017-11-20] VITALS: Ht 170.2 cm; Wt 80.0 kg
[~2017-11-20 06:23] MED LIST changes: +LISI10TA3 PO
[2017-11-20 06:25] VITALS: BP 165/109; PULSE 64; RESP 16; TEMP 98.1; O2SAT 98
[2017-11-20 06:36] VITALS: BP 159/109
[2017-11-20] MEDS ORDERED: LISI10TA3 PO (06:52)
[2017-11-20] MEDS ORDERED: LISI-515 PO (06:52)
--- NOTE | 2017-11-20 06:52 | PD ---
HPI Chief Complaint: Hypertension Time Seen by Provider: 06:48 Travel History International Travel<30 days: No Contact w/Intl Traveler<30days: No Traveled to known affect area: No History of Present Illness HPI 52-year-old male complains of elevated blood pressure. Patient has history hypertension. Patient has been taking lisinopril 30 mg daily for years. Patient states that he ran out of lisinopril 2 days ago. Patient denies any headache. Patient denies any chest pain or shortness of breath. Patient denies abdominal pain. Patient denies any focal weakness or numbness of extremity. PFSH Past Medical History Cardiovascular Problems: Yes Diminished Hearing: No GERD: Yes Hypertension: Yes Migraines: Yes Tetanus Vaccination: Unknown Past Surgical History Abdominal Surgery: Yes (hernia ) Social History Alcohol Use: No Tobacco Use: No Substance Use: No Allergies-Medications (Allergen,Severity, Reaction): Coded Allergies: No Known Allergies (Unverified Adverse Reaction, Unknown, 11/20/17) Reported Meds & Prescriptions Reported Meds & Active Scripts Active Lisinopril 10 Mg Tab 10 Mg PO DAILY Lisinopril 20 Mg Tab 20 Mg PO DAILY Reported Vitamin B-12 (Cyanocobalamin) 1,000 Mcg Subl 1,000 Mcg SL DAILY Nexium (Esomeprazole DR) 40 Mg Capdr 40 Mg PO DAILY Aspirin Low Dose (Aspirin) 81 Mg Chew 81 Mg CHEW DAILY Review of Systems General / Constitutional: No: Fever Eyes: No: Visual changes HENT: No: Headaches Cardiovascular: No: Chest Pain or Discomfort Respiratory: No: Shortness of Breath Gastrointestinal: No: Abdominal Pain Genitourinary: No: Dysuria Musculoskeletal: No: Pain Skin: No Rash Neurologic: No: Weakness Psychiatric: No: Depression Endocrine: No: Polydipsia Hematologic/Lymphatic: No: Easy Bruising Physical Exam Narrative GENERAL: Well-nourished, well-developed patient. SKIN: Focused skin assessment warm/dry. HEAD: Normocephalic. EYES: No scleral icterus. No injection or drainage. NECK: Supple, trachea midline. No JVD or lymphadenopathy. CARDIOVASCULAR: Regular rate and rhythm without murmurs, gallops, or rubs. RESPIRATORY: Breath sounds equal bilaterally. No accessory muscle use. GASTROINTESTINAL: Abdomen soft, non-tender, nondistended. MUSCULOSKELETAL: No cyanosis, or edema. BACK: Nontender without obvious deformity. No CVA tenderness. Data Data Last Documented VS Vital Signs Date Time Temp Pulse Resp B/P (MAP) Pulse Ox O2 Delivery O2 Flow Rate FiO2 11/20/17 06:36 159/109 (126) 11/20/17 06:25 98.1 64 16 98 Room Air MDM Medical Decision Making Medical Screen Exam Complete: Yes Emergency Medical Condition: Yes Differential Diagnosis Differential diagnosis including uncontrolled hypertension, hypertensive urgency , hypertensive crisis. Narrative Course 52-year-old male with elevated blood pressure. Patient has history of hypertension and ran out of his medication 2 days ago. Diagnosis Primary Impression: Uncontrolled hypertension Patient Instructions: General Instructions Additional Instructions: Take lisinopril as directed. Follow-up with personal physician. Return if worse. Med/Other Pt SpecificInfo: Prescription(s) given Scripts Lisinopril (Lisinopril) 10 Mg Tab 10 MG PO DAILY, #30 TAB 6 Refills Prov: Jayro Brown MD 11/20/17 Lisinopril (Lisinopril) 20 Mg Tab 20 MG PO DAILY, #30 TAB 6 Refills Prov: Jayro Brown MD 11/20/17 Disposition: 01 DISCHARGE HOME Condition: Stable Jayro Brown MD Nov 20, 2017 06:52
== END 2017-11-20 07:13 | disposition home or self-care (01) ==
LOC: NEPE 06:23
DX: I10 Essential (primary) hypertension (principal); K21.9 Gastro-esophageal reflux disease without esophagitis; G43.909 Migraine, unspecified, not intractable, without status migrainosus; Z86.79 Personal history of other diseases of the circulatory system; Z79.82 Long term (current) use of aspirin; Z79.899 Other long term (current) drug therapy
CPT/HCPCS: 99283

== ENCOUNTER 2018-03-10 19:26 | Observation (INO) | payer SELFPAY ==
[~2018-03-10] VITALS: Ht 170.2 cm; Wt 84.0 kg
[~2018-03-10 19:26] MED LIST changes: -ZOFR4TAB PO
[2018-03-10 20:17] VITALS: BP 137/93; PULSE 67; RESP 16; TEMP 99; O2SAT 97
--- NOTE | 2018-03-10 20:45 | PD ---
HPI Chief Complaint: Chest Pain Time Seen by Provider: 20:35 Travel History International Travel<30 days: No Contact w/Intl Traveler<30days: No Traveled to known affect area: No History of Present Illness HPI 52-year-old male complains of chest pain. Patient states the pain started yesterday. Patient states the pain is sharp pain started in the left chest with radiation to left shoulder. Patient states that the pain has been persistent since then. Patient states the pain is better today. Patient denies any coughing congestion fever chills. Patient denies any palpitation diaphoresis or nausea with the chest pain. Patient states that the chest pains not associate with exertion. Patient has history hypertension. Patient denies history of diabetes or hyperlipidemia. Patient is a non-smoker. Patient has strong family history of heart disease. On a scale from 1-10 the pain is a 2. Patient took aspirin 81 mg 3 today. Patient was admitted to chest pain since July 2016 and had a normal stress test. PFSH Past Medical History Cardiovascular Problems: Yes Diminished Hearing: No GERD: Yes Hypertension: Yes Migraines: Yes Tetanus Vaccination: Unknown Influenza Vaccination: No Past Surgical History Abdominal Surgery: Yes (hernia ) Social History Alcohol Use: No Tobacco Use: No Substance Use: No Allergies-Medications (Allergen,Severity, Reaction): Coded Allergies: No Known Allergies (Unverified Adverse Reaction, Unknown, 03/10/18) Reported Meds & Prescriptions Reported Meds & Active Scripts Active Lisinopril 20 Mg Tab 20 Mg PO DAILY Lisinopril 10 Mg Tab 10 Mg PO DAILY Reported Vitamin B-12 (Cyanocobalamin) 1,000 Mcg Subl 1,000 Mcg SL DAILY Nexium (Esomeprazole DR) 40 Mg Capdr 40 Mg PO DAILY Aspirin Low Dose (Aspirin) 81 Mg Chew 81 Mg CHEW DAILY Review of Systems General / Constitutional: No: Fever Eyes: No: Visual changes HENT: No: Headaches Cardiovascular: Positive: Chest Pain or Discomfort Respiratory: No: Shortness of Breath Gastrointestinal: No: Abdominal Pain Genitourinary: No: Dysuria Musculoskeletal: No: Pain Skin: No Rash Neurologic: No: Weakness Psychiatric: No: Depression Endocrine: No: Polydipsia Hematologic/Lymphatic: No: Easy Bruising Physical Exam Narrative GENERAL: Well-nourished, well-developed patient. SKIN: Focused skin assessment warm/dry. HEAD: Normocephalic. EYES: No scleral icterus. No injection or drainage. NECK: Supple, trachea midline. No JVD or lymphadenopathy. CARDIOVASCULAR: Regular rate and rhythm without murmurs, gallops, or rubs. RESPIRATORY: Breath sounds equal bilaterally. No accessory muscle use. GASTROINTESTINAL: Abdomen soft, non-tender, nondistended. MUSCULOSKELETAL: No cyanosis, or edema. BACK: Nontender without obvious deformity. No CVA tenderness. Neurologic exam normal. Data Data Last Documented VS Vital Signs Date Time Temp Pulse Resp B/P (MAP) Pulse Ox O2 Delivery O2 Flow Rate FiO2 03/10/18 21:04 98 Room Air 03/10/18 20:17 99.0 67 16 137/93 (108) Orders Orders Electrocardiogram (03/10/18 20:41) Complete Blood Count With Diff (03/10/18 20:41) Comprehensive Metabolic Panel (03/10/18 20:41) Creatine Kinase (Cpk) (03/10/18 20:41) Troponin I (03/10/18 20:41) Prothrombin Time / Inr (Pt) (03/10/18 20:41) Act Partial Throm Time (Ptt) (03/10/18 20:41) Chest, Single Ap (03/10/18 20:41) Iv Access Insert/Monitor (03/10/18 20:41) Ecg Monitoring (03/10/18 20:41) Oximetry (03/10/18 20:41) CKMB (03/10/18 20:45) CKMB% (03/10/18 20:45) Admit Order (Ed Use Only) (03/10/18 21:43) Labs Laboratory Tests Test 03/10/18 20:45 White Blood Count 8.4 TH/MM3 Red Blood Count 4.71 MIL/MM3 Hemoglobin 14.7 GM/DL Hematocrit 42.1 % Mean Corpuscular Volume 89.4 FL Mean Corpuscular Hemoglobin 31.1 PG Mean Corpuscular Hemoglobin Concent 34.9 % Red Cell Distribution Width 13.4 % Platelet Count 268 TH/MM3 Mean Platelet Volume 7.4 FL Neutrophils (%) (Auto) 54.9 % Lymphocytes (%) (Auto) 32.5 % Monocytes (%) (Auto) 7.2 % Eosinophils (%) (Auto) 3.5 % Basophils (%) (Auto) 1.9 % Neutrophils # (Auto) 4.6 TH/MM3 Lymphocytes # (Auto) 2.7 TH/MM3 Monocytes # (Auto) 0.6 TH/MM3 Eosinophils # (Auto) 0.3 TH/MM3 Basophils # (Auto) 0.2 TH/MM3 CBC Comment DIFF FINAL Differential Comment Prothrombin Time 10.1 SEC Prothromb Time International Ratio 1.0 RATIO Activated Partial Thromboplast Time 25.8 SEC Blood Urea Nitrogen 22 MG/DL Creatinine 1.33 MG/DL Random Glucose 86 MG/DL Total Protein 7.3 GM/DL Albumin 4.1 GM/DL Calcium Level 9.1 MG/DL Alkaline Phosphatase 85 U/L Aspartate Amino Transf (AST/SGOT) 25 U/L Alanine Aminotransferase (ALT/SGPT) 28 U/L Total Bilirubin 0.3 MG/DL Sodium Level 138 MEQ/L Potassium Level 3.8 MEQ/L Chloride Level 103 MEQ/L Carbon Dioxide Level 28.2 MEQ/L Anion Gap 7 MEQ/L Estimat Glomerular Filtration Rate 56 ML/MIN Total Creatine Kinase 356 U/L Creatine Kinase MB 4.3 NG/ML Creatine Kinase MB % 1.2 % Troponin I LESS THAN 0.02 NG/ML MDM Medical Decision Making Medical Screen Exam Complete: Yes Emergency Medical Condition: Yes Interpretation(s) EKG shows sinus rhythm nonspecific ST-T wave change. Last Impressions Chest X-Ray 03/10/182040 Signed Impressions: Service Date/Time: Saturday, March 10, 2018 21:03 - CONCLUSION: No acute disease. Reid Hardin MD 21:37 PM. CBC within normal limits. BUN 22. Creatinine 1.33. Cardiac enzymes are normal. Differential Diagnosis Differential diagnosis including musculoskeletal, angina, [place], PE, pneumothorax. Narrative Course 52-year-old male with left-sided chest pain. Patient will be admitted to the chest pain center. Diagnosis Primary Impression: Chest pain Qualified Codes: R07.9 - Chest pain, unspecified Admitting Information Admitting Physician Requests: Observation Jayro Brown MD Mar 10, 2018 20:45
[2018-03-10 21:02] LABS: AUTOMATED NEUTROPHIL # 4.6 TH/MM3 (1.8-7.7); BASOPHIL # 0.2 TH/MM3 (0-0.2); BASOPHIL % 1.9 % (0.0-2.0); EOSINOPHIL # 0.3 TH/MM3 (0-0.4); EOSINOPHIL % 3.5 % (0.0-4.0); HEMATOCRIT 42.1 % (39.0-51.0); HEMOGLOBIN 14.7 GM/DL (13.0-17.0); LYMPH % 32.5 % (9.0-44.0); LYMPHOCYTE # 2.7 TH/MM3 (1.0-4.8); MEAN CELL VOLUME 89.4 FL (80.0-100.0); MEAN CORPUSCULAR HEMOGLOBIN 31.1 PG (27.0-34.0); MEAN CORPUSCULAR HGB CONC 34.9 % (32.0-36.0); MEAN PLATELET VOLUME 7.4 FL (7.0-11.0); MONO % 7.2 % (0.0-8.0); MONOCYTE # 0.6 TH/MM3 (0-0.9); NEUT % 54.9 % (16.0-70.0); PLATELET COUNT 268 TH/MM3 (150-450); RED BLOOD COUNT 4.71 MIL/MM3 (4.50-5.90); RED CELL DISTRIBUTION WIDTH 13.4 % (11.6-17.2); WHITE BLOOD COUNT 8.4 TH/MM3 (4.0-11.0)
[2018-03-10 21:04] VITALS: O2SAT 98
[2018-03-10 21:16] LABS: PROTHROMBIN TIME - PATIENT 10.1 SEC (9.8-11.6)
[2018-03-10 21:19] LABS: ALBUMIN 4.1 GM/DL (3.4-5.0); AST (GOT) 25 U/L (15-37); BICARBONATE 28.2 MEQ/L (21.0-32.0); BLOOD UREA NITROGEN 22 MG/DL (7-18); CALCIUM 9.1 MG/DL (8.5-10.1); CHLORIDE 103 MEQ/L (98-107); CREATININE 1.33 MG/DL (0.60-1.30); GLOMERULAR FILTRATION RATE 56 ML/MIN (>89); GLUCOSE,RANDOM 86 MG/DL (74-106); SODIUM (NA) 138 MEQ/L (136-145)
[2018-03-10 21:25] LABS: ALKALINE PHOSPHATASE 85 U/L (45-117); ALT (GPT) 28 U/L (12-78); TOTAL BILIRUBIN ADULT 0.3 MG/DL (0.2-1.0); TOTAL PROTEIN 7.3 GM/DL (6.4-8.2); TROPONIN I LESS THAN 0.02 NG/ML (0.02-0.05)
--- NOTE | 2018-03-10 21:30 | RADRPT ---
EXAM DATE/TIME: 03/10/2018 21:03 [facility] COMPARISON: CHEST SINGLE AP, January 04, 2017, 3:48. INDICATIONS : Chest pain. MEDICAL HISTORY : None. SURGICAL HISTORY : None. ENCOUNTER: Initial ACUITY: 1 day PAIN SCORE: 6/10 LOCATION: Bilateral chest FINDINGS: A single view of the chest demonstrates the lungs to be symmetrically aerated without evidence of mas s, infiltrate or effusion. The cardiomediastinal contours are unremarkable. Osseous structures are intact. CONCLUSION: No acute disease. Reid Hardin MD on March 10, 2018 at 21:27 Board Certified Radiologist. This report was verified electronically.
[2018-03-10] MEDS ORDERED: SODIUM CHLORIDE 0.9% FLUSH 10 ML FLUSH IV FLUSH PRN (21:45)
[2018-03-10] MEDS ORDERED: ONDANSETRON HCL 4 MG/2 ML VIAL IV PUSH PRN (21:45)
[2018-03-10 22:17] VITALS: BP 147/100; PULSE 58; RESP 16; O2SAT 98
[2018-03-10] MEDS: ACETAMINOPHEN 500 MG CPLT PO PRN (22:17)
[2018-03-11 01:08] LABS: TROPONIN I LESS THAN 0.02 NG/ML (0.02-0.05)
[2018-03-11 01:47] VITALS: BP 143/92; PULSE 59; RESP 16; O2SAT 98
[2018-03-11 02:05] VITALS: BP 141/91; PULSE 50; RESP 16; TEMP 97.9; O2SAT 97
[2018-03-11 03:42] VITALS: BP 103/75; PULSE 60; RESP 16; TEMP 97.9; O2SAT 94
[2018-03-11 04:30] LABS: TROPONIN I LESS THAN 0.02 NG/ML (0.02-0.05)
[2018-03-11 05:49] VITALS: PULSE 68
[2018-03-11] MEDS: ACETAMINOPHEN 500 MG CPLT PO PRN (06:55)
[2018-03-11 07:38] VITALS: BP 134/84; PULSE 70; RESP 18; TEMP 97.8; O2SAT 94
[2018-03-11 07:44] VITALS: O2SAT 94
[2018-03-11] MEDS ORDERED: NITROGLYCERIN 0.4 MG SL 25 TABS/BTL SL PRN (08:00)
--- NOTE | 2018-03-11 08:51 | HHI.HP ---
HPI Primary Care Physician No Primary Care Physician Chief Complaint Chest pain History of Present Illness 52-year-old male with history of hypertension and GERD presents emergency room for further evaluation chest pain. Onset Monday afternoon. Nonexertional. Location left anterior chest. Characterized at sharp pain. Radiation to left shoulder and left arm. Duration 1 minute. No associated symptoms of nausea, vomiting, dyspnea, or diaphoresis. Denies similar pain in the past. No known precipitating or relieving factors. No further chest pain episodes since Monday. Son encouraged him to come the emergency room for further evaluation. Review of Systems General: No fatigue,weakness, fever, chills, recent illness, or change in appetite. Has been in his general state of health. HEENT: No NARAYAN, history of migraines, no nasal congestion or drainage, no dysphasia CV: As stated above. No current or reoccurring chest pain episodes and strength. No palpitations. RESP: No SOB, cough, wheeze, or recent respiratory infection. GI: No nausea, vomiting, bowel changes, diarrhea, constipation, pain, distention , melena, or blood in the stool. No unintentional weight gain or weight loss. : No dysuria, urgency, frequency EXT: No lower leg edema, no paraesthesias MS: No discomfort, injury, or change in ROM NEURO: No difficulty with balance, LOC, motor/sensory deficits PSYCH: No anxiety, depression, or suicidal ideation SKIN: No rashes, no concerning lesions Past Family Social History Allergies: Coded Allergies: No Known Allergies (Unverified Adverse Reaction, Unknown, 03/10/18) Past Medical History Hypertension, GERD, migraines Past Surgical History Hernia repair 2 (1986&1990) Reported Medications Reported Meds & Active Scripts Active Lisinopril 20 Mg Tab 20 Mg PO DAILY Lisinopril 10 Mg Tab 10 Mg PO DAILY Reported Vitamin B-12 (Cyanocobalamin) 1,000 Mcg Subl 1,000 Mcg SL DAILY Nexium (Esomeprazole DR) 40 Mg Capdr 40 Mg PO DAILY Aspirin Low Dose (Aspirin) 81 Mg Chew 81 Mg CHEW DAILY Active Ordered Medications Current Medications Medications (Trade) Dose Ordered Sig/Elinor Route Start Time Stop Time Status Last Admin (NS Flush) 2 ml UNSCH PRN IV FLUSH 03/10/18 21:45 (NS Flush) 2 ml BID IV FLUSH 03/11/18 09:00 (Tylenol) 500 mg Q4H PRN PO 03/10/18 21:45 03/11/18 06:55 (Zofran Inj) 4 mg Q6H PRN IV PUSH 03/10/18 21:45 (Nitrostat Sl) 0.4 mg Q5M PRN SL 03/11/18 08:00 (Aspirin) 325 mg DAILY PO 03/11/18 09:00 Family History Sister and 2 brothers had MIs in their early 50s. Social History No known coronary artery disease, hyperlipidemia, diabetes. Known hypertension. Lifelong non-smoker. Denies any alcohol use. . Endorses an active lifestyle. Past cardiac testing 08/17/16 Exercise cardiac treadmill-Sumit protocol 7 minutes, read as non- ischemic Physical Exam Vital Signs Vital Signs Date Time Temp Pulse Resp B/P (MAP) Pulse Ox O2 Delivery O2 Flow Rate FiO2 03/11/18 07:44 94 21 03/11/18 07:38 97.8 70 18 134/84 (101) 94 03/11/18 05:49 68 03/11/18 03:42 97.9 60 16 103/75 (84) 94 03/11/18 02:05 97.9 50 16 141/91 (108) 97 03/11/18 01:47 59 16 143/92 (109) 98 Room Air 03/10/18 22:17 58 16 147/100 (116) 98 Room Air 03/10/18 21:04 98 Room Air 03/10/18 20:17 99.0 67 16 137/93 (108) 97 Physical Exam GENERAL: Alert WN, WD, NAD, pleasant, male who appears older than stated age. HEAD: NC, AT EYES: Sclera clear, conjunctiva without injection, pupils equal and round ENT: Mucous membranes pink and moist CV: RRR, without murmur, rub, gallop, no JVD, S1-S2 no S3-S4. Chest wall nontender with palpation. RESP: Clear lungs throughout bilateral, no crackles, wheeze, rhonchi, symmetrical chest rise, nonlabored, able to speak in full sentences ABD: Soft, NT, ND, no masses, positive bowel tones EXT: Pulses +2x4, no dependent edema MS: Normal tone x4 extremities, nontender, no obvious deformities, full range of motion NEURO: CN II through CN XII grossly intact, motor strength 5/5, gait WNL PSYCH: A+O x3, pleasant affect, appropriate speech, mood, insight and judgment SKIN: Normal turgor, normal texture, no lesions, no rashes, brisk cap refill, even hair distribution Laboratory Laboratory Tests Test 03/10/18 20:45 03/11/18 00:30 03/11/18 03:49 White Blood Count 8.4 Red Blood Count 4.71 Hemoglobin 14.7 Hematocrit 42.1 Mean Corpuscular Volume 89.4 Mean Corpuscular Hemoglobin 31.1 Mean Corpuscular Hemoglobin Concent 34.9 Red Cell Distribution Width 13.4 Platelet Count 268 Mean Platelet Volume 7.4 Neutrophils (%) (Auto) 54.9 Lymphocytes (%) (Auto) 32.5 Monocytes (%) (Auto) 7.2 Eosinophils (%) (Auto) 3.5 Basophils (%) (Auto) 1.9 Neutrophils # (Auto) 4.6 Lymphocytes # (Auto) 2.7 Monocytes # (Auto) 0.6 Eosinophils # (Auto) 0.3 Basophils # (Auto) 0.2 CBC Comment DIFF FINAL Differential Comment Prothrombin Time 10.1 Prothromb Time International Ratio 1.0 Activated Partial Thromboplast Time 25.8 Blood Urea Nitrogen 22 Creatinine 1.33 Random Glucose 86 Total Protein 7.3 Albumin 4.1 Calcium Level 9.1 Alkaline Phosphatase 85 Aspartate Amino Transf (AST/SGOT) 25 Alanine Aminotransferase (ALT/SGPT) 28 Total Bilirubin 0.3 Sodium Level 138 Potassium Level 3.8 Chloride Level 103 Carbon Dioxide Level 28.2 Anion Gap 7 Estimat Glomerular Filtration Rate 56 Total Creatine Kinase 356 289 285 Creatine Kinase MB 4.3 4.1 4.0 Creatine Kinase MB % 1.2 Troponin I LESS THAN 0.02 LESS THAN 0.02 LESS THAN 0.02 Result Diagram: 03/10/18204403/10/182044 Imaging Last 48 hours Impressions Chest X-Ray 03/10/182040 Signed Impressions: Service Date/Time: Saturday, March 10, 2018 21:03 - CONCLUSION: No acute disease. Reid Hardin MD Course EKG NSR, normal axis, no st t segment changes Caprini VTE Risk Assessment Caprini VTE Risk Assessment: No/Low Risk (score <= 1) Caprini Risk Assessment Model Point Value = 1 Point Value = 2 Point Value = 3 Point Value = 5 Age 41-60 Minor surgery BMI > 25 kg/m2 Swollen legs Varicose veins or History of unexplained or recurrent spontaneous Oral contraceptives or hormone replacement Sepsis (< 1 month) Serious lung disease, including pneumonia (< 1 month) Abnormal pulmonary function Acute myocardial infarction Congestive heart failure (< 1 month) History of inflammatory bowel disease Medical patient at bed rest Age 61-74 Arthroscopic surgery Major open surgery (> 45 min) Laparoscopic surgery (> 45 min) Malignancy Confined to bed (> 72 hours) Immobilizing plaster cast Central venous access Age >= 75 History of VTE Family history of VTE Factor V Leiden Prothrombin [id number] Lupus anticoagulant Anticardiolipin antibodies Elevated serum homocysteine Heparin-induced thrombocytopenia Other congenital or acquired thrombophilia Stroke (< 1 month) Elective arthroplasty Hip, pelvis, or leg fracture Acute spinal cord injury (< 1 month) Prophylaxis Regimen Total Risk Factor Score Risk Level Prophylaxis Regimen 0-1 Low Early ambulation 2 Moderate Order ONE of the following: *Sequential Compression Device (SCD) *Heparin 5000 units SQ BID 3-4 Higher Order ONE of the following medications: *Heparin 5000 units SQ TID *Enoxaparin/Lovenox 40 mg SQ daily (WT < 150 kg, CrCl > 30 mL/min) *Enoxaparin/Lovenox 30 mg SQ daily (WT < 150 kg, CrCl > 10-29 mL/min) *Enoxaparin/Lovenox 30 mg SQ BID (WT < 150 kg, CrCl > 30 mL/min) AND/OR *Sequential Compression Device (SCD) 5 or more Highest Order ONE of the following medications: *Heparin 5000 units SQ TID (Preferred with Epidurals) *Enoxaparin/Lovenox 40 mg SQ daily (WT < 150 kg, CrCl > 30 mL/min) *Enoxaparin/Lovenox 30 mg SQ daily (WT < 150 kg, CrCl > 10-29 mL/min) *Enoxaparin/Lovenox 30 mg SQ BID (WT < 150 kg, CrCl > 30 mL/min) AND *Sequential Compression Device (SCD) Assessment and Plan Assessment and Plan #1 Atypical chest pain-admitted to chest pain. Ruled out with 3 sets of EKGs, cardiac enzymes, and monitored on telemetry overnight. Seen and evaluated by Dr. René Arnold. Proceed with exercise cardiac testing. If unremarkable, plans to discharge home with follow from PCP. He is in process of establishing with [facility]. #2 History of hypertension-continue lisinopril. Lauren Bro Mar 11, 2018 08:51
[2018-03-11] MEDS ORDERED: LISINOPRIL 10 MG TAB PO SCH (09:00)
[2018-03-11] MEDS ORDERED: ASPIRIN 325 MG TAB PO SCH (09:00)
[2018-03-11] MEDS ORDERED: SODIUM CHLORIDE 0.9% FLUSH 10 ML FLUSH IV FLUSH SCH (09:00)
[2018-03-11] MEDS ORDERED: LISINOPRIL 20 MG TAB PO SCH (09:00)
[2018-03-11] MEDS ORDERED: PANTOPRAZOLE SOD 40 MG DELAYED RELEASE TAB PO SCH (09:00)
--- NOTE | 2018-03-11 10:16 | HHI.DCPOC ---
Discharge Care Plan Diagnosis: (1) Atypical chest pain (2) History of hypertension Goals to Promote Your Health * To prevent worsening of your condition and complications * To maintain your health at the optimal level Directions to Meet Your Goals Take your medications as prescribed Follow your dietary instruction Follow activity as directed Keep your appointments as scheduled Take your immunizations and boosters as scheduled If your symptoms worsen call your PCP, if no PCP go to Urgent Care Center or Emergency Room Smoking is Dangerous to Your Health. Avoid second hand smoke Call the 24-hour hour crisis hotline for domestic abuse at Lauren Bro Mar 11, 2018 10:16
--- NOTE | 2018-03-11 10:56 | TR ---
Date Performed: 03/11/2018 Time Performed: 09:41:07 DOCTOR: René Brink DRUG LIST: CLINICAL HISTORY: CHEST PAIN REASON FOR TEST: Chest pain REASON FOR ENDING: OBSERVATION: CONCLUSION: Sumit protocol completed. Stopped sec to exceeding target heart rate and leg fatigue . Maximum ZM=852 Target HR Ihdntump=664.0% Maximum IA=793/88 Total Exercise Time=10:01. No reprod mario st discomfort. No ectopy. No st t segment changes to sugg ischemia. Normal bp response. Great exercis e tolerance. Recovery quick and unremarkable. COMMENTS: Conclusion: Normal treadmill exercise. No evidence of ischemia.
--- NOTE | 2018-03-11 10:59 | EKG ---
Date Performed: 03/11/2018 Time Performed: 00:29:55 PTAGE: 52 years EKG: SINUS BRADYCARDIA BORDERLINE ECG PREVIOUS TRACING : 03/10/2018 20.13 Since previous tracing, no significant change noted DOCTOR: René Brink Interpretating Date/Time 03/11/2018 10:58:55
--- NOTE | 2018-03-11 10:59 | EKG ---
Date Performed: 03/11/2018 Time Performed: 03:46:37 PTAGE: 52 years EKG: SINUS BRADYCARDIA WITH SINUS ARRHYTHMIA BORDERLINE ECG PREVIOUS TRACING : 03/11/2018 00.29 Since previous tracing, no significant change noted DOCTOR: René Brink Interpretating Date/Time 03/11/2018 10:58:40
--- NOTE | 2018-03-12 00:28 | EKG ---
Date Performed: 03/10/2018 Time Performed: 20:13:12 PTAGE: 52 years EKG: Sinus rhythm NORMAL ECG PREVIOUS TRACING : 10/20/2017 23.03 Since the previous tracing, no significant change noted DOCTOR: Bennie Guadarrama Interpretating Date/Time 03/12/2018 00:27:33
== END 2018-03-11 11:49 | disposition home or self-care (01) ==
LOC: NEPC 19:26 → NEDA 21:45 → NEPGCP 03-11 01:54
DX: R07.9 Chest pain, unspecified (principal); I10 Essential (primary) hypertension; R94.31 Abnormal electrocardiogram [ECG] [EKG]; K21.9 Gastro-esophageal reflux disease without esophagitis; Z79.82 Long term (current) use of aspirin; Z82.49 Family history of ischemic heart disease and other diseases of the circulatory system
CPT/HCPCS: 71045; 80053; 82550; 82552; 84484; 85025; 85610; 85730; 93005; 93017; 99285; G0378